=== PATIENT | female | born 1975 | race African-American/Black ===

== ENCOUNTER 2019-01-07 09:43 | Emergency (ER) | payer SELFPAY ==
[~2019-01-07] VITALS: Ht 157.5 cm; Wt 74.8 kg
--- OUTSIDE RECORDS SUMMARY | 2019-01-07 09:45 | XMS REPORT | Summary of Care ---
Author Author [facility] - Health Organization [facility] - Health Address Unknown Phone Unavailable Care Team Providers Care Manager Training Name Role Phone Marisel Moody CNM PCP Reason for Referral * Radiology Services (Routine) Referred By Contact Referred To Contact Status Reason Specialty Diagnoses / Procedures Marisel Moody CNM [address] [place] [address] New Request Diagnostic Diagnoses Radiology Well woman exam with routine gynecological exam Breast cancer screening P rocedures BI SCREENING MAMMOGRAM BILATERAL Reason for Visit * Reason Comments ANNUAL EXAM Encounter Details Care Team Description Date Type Department Marisel Moody CNM [address] [place] [address] Well woman exam with routine gynecological exam (Primary Dx); Breast cancer screening; History of trichomoniasis; Routine screening for STI (sexually transmitted infection); Absence of menstruation; Oral contraceptive pill surveillance; Ringworm of body 10/14/2018 Office Visit [facility] [address] [place] [address] Allergies No Known Allergiesdocumented as of this encounter (statuses as of 10/18/2018) Medications End Date Status Medication Sig Dispensed Refills Start Date Active Norethindrone Take 1 tablet 4 Package 2 Acet-Ethinyl Est (JUNEL by mouth 8 1.08/08, 21,) 1.5-30 daily. mg-mcg per tablet Active Norethindrone Take 1 tablet 2 Package 10 Acet-Ethinyl Est (ADEBAYO by mouth 9 1.530, 21,) 1.5-30 daily. mg-mcg per tabletIndications: Oral contraceptive pill surveillance 10/18/2018 Discontinued Norethindrone Take 1 tablet 2 Package 0 Acet-Ethinyl Est (ADEBAYO by mouth 9 .08/08, 21,) 1.5-30 daily. mg-mcg per tabletIndications: Initiation of OCP (BCP) documented as of this encounter (statuses as of 10/18/2018) Active Problems Problem Noted Date Hx of Trichomonal vulvovaginitis 04/18/2018 Vaginal discharge 04/18/2018 Irregular menstrual cycle 04/18/2018 Surveillance of previously prescribed contraceptive pill 11/05/2017 Screen for STD (sexually transmitted disease) 10/10/2017 documented as of this encounter (statuses as of 10/18/2018) Resolved Problems Problem Noted Date Resolved Date Trichomonal vulvovaginitis 10/17/2017 04/18/2018 Well woman exam 10/10/2017 04/18/2018 Contraception 10/10/2017 04/18/2018 Breast cancer screening 10/10/2017 04/18/2018 Overview: Negative mammogram 10/2017. Dense breasts. Report scanned Family history of diabetes mellitus 10/10/2017 04/18/2018 documented as of this encounter (statuses as of 10/18/2018) Social History Date Tobacco Use Types Packs/Day Years Used Never Smoker Smokeless Tobacco: Never Used Drinks/Week oz/Week Comments Alcohol Use occasional Yes Sex Assigned at Date Recorded Not on file Industry Job Start Date Occupation Not on file Not on file Not on file Travel End Travel History Travel Start No recent travel history available. documented as of this encounter Last Filed Vital Signs Reading Time Taken Comments Vital Sign 122/73 10/14/2018 5:03 PM CDT Blood Pressure 82 10/14/2018 5:03 PM CDT Pulse 36.4 C (97.6 F) 10/14/2018 5:03 PM CDT Temperature 18 10/14/2018 5:03 PM CDT Respiratory Rate - - Oxygen Saturation - - Inhaled Oxygen Concentration 76.2 kg (168 lb) 10/14/2018 5:03 PM CDT Weight 157.5 cm (5' 2") 10/14/2018 5:03 PM CDT Height 30.73 10/14/2018 5:03 PM CDT Body Mass Index documented in this encounter Progress Notes * Marisel Moody, FARA - 10/14/2018 4:45 PM CDT Chief complaint: Chief Complaint Patient presents with ANNUAL EXAM Nathaly Ceballos is a 42 year old female here today for established patien t well woman evaluation and contraceptive managment. She is alto reporting a ra sh on her lower leg x 1 week that is itchy in nature. She has not tried any gonzalo atments. 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 Patient reports she is sexually active. States her partne r does not have an STD. She requests STI testing. The patient is experiencing no pain. The patient's pertinent negatives include no breast complaints, genital itching, genital lesions, genital odor, pelvic pain, vaginal bleeding, vaginal discharge, vaginal injury or vaginal pain. Pertinent negatives include no abdominal pain, back pain, constipation, dyspareunia, fever, flank pain, headaches, light-head edness, nausea, urgency or vomiting. She uses OCPs for contraception. She is con sidering another however she is hesitant due to her age and irregular menstrual cycle. Her menstrual history has been irregular. She has no history o f PID. She has had one surgery. LMP 07/2018; has been on CHCs since Menses: Irregular Mammogram History: she has never had a mammogram Last Pap Smear: date: 10/2017 NIL, trich identified on pap. Histories OB History Para Term AB Living 1 1 1 1 SAB TAB Ectopic Multiple Live Births 1 # Outcome Date GA Lbr Jewel/2nd Weight Sex Delivery Anes PTL Lv 1 Term 08/28/03 38w0d M CS-LTranv EPI MOLLY Past Medical History: Diagnosis Date Family history of diabetes mellitus 10/10/2017 Irregular menstrual cycle 04/18/2018 Menstrual disorder irregular cycles since july Screen for STD (sexually transmitted disease) 10/10/2017 Trichomonal vulvovaginitis 10/17/2017 Family History Problem Relation Age of Onset Diabetes Mother Hypertension Mother Family Status Relation Name Status Mo Alive STROKE Fa MGMo MGFa PGMo PGFa Past Surgical History: Procedure Laterality Date SECTION Social History Socioeconomic History Marital status: Single Spouse name: Not on file Number of children: Not on file Years of education: Not on file Highest education level: Not on file Occupational History Not on file Social Needs Financial resource strain: Not on file Food insecurity: Worry: Not on file Inability: Not on file Transportation needs: Medical: Not on file Non-medical: Not on file Tobacco Use Smoking status: Never Smoker Smokeless tobacco: Never Used Substance and Sexual Activity Alcohol use: Yes Comment: occasional Drug use: No Sexual activity: Yes Partners: Male control/protection: None, Pill, Contraceptive Patch Lifestyle Physical activity: Days per week: Not on file Minutes per session: Not on file Stress: Not on file Relationships Social connections: Talks on phone: Not on file Gets together: Not on file Attends yazidi service: Not on file Active member of club or organization: Not on file Attends meetings of clubs or organizations: Not on file Relationship status: Not on file Intimate partner violence: Fear of current or ex partner: Not on file Emotionally abused: Not on file Physically abused: Not on file Forced sexual activity: Not on file Other Topics Concern Not on file Social History Narrative Denies any form of abuse. Zuly Lopez RN10/14/2018 Social History Substance and Sexual Activity Sexual Activity Yes Partners: Male control/protection: None, Pill, Contraceptive Patch Labs Labs are pending. Radiology No new radiology. Allergies Nathaly has No Known Allergies. Medications Nathaly has a current medication list which includes the following prescription(s) : norethindrone acet-ethinyl est and norethindrone acet-ethinyl est. Review of Systems Constitutional: Negative. Negative for appetite change, fever and unexpected we ight change. HENT: Negative. Negative for congestion, facial swelling, rhinorrhea and sore t hroat. Eyes: Negative. Negative for visual disturbance. Respiratory: Negative. Breasts: Negative. Cardiovascular: Negative. Negative for palpitations and leg swelling. Gastrointestinal: Negative. Negative for abdominal pain, constipation, diarrhea , nausea and vomiting. Genitourinary: Negative. Negative for bladder incontinence, dysuria, flank pain , vaginal bleeding, vaginal discharge, difficulty urinating, genital sores, vagi nal pain and pelvic pain. Musculoskeletal: Negative. Skin: Positive for rash. Neurological: Negative. Negative for syncope, light-headedness, numbness and he adaches. Psychiatric/Behavioral: Negative. Negative for dysphoric mood, self-injury and suicidal ideas. The patient is not nervous/anxious. Endocrine: Endocrine negative BP 122/73 | Pulse 82 | Temp 36.4 C (97.6 F) (Tympanic) | Resp 18 | Ht 5' 2" (1.575 m) | Wt 168 lb (76.2 kg) | BMI 30.73 kg/m Pregravid BMI: Could not be calculated Physical Exam Vitals reviewed. Constitutional: She is oriented to person, place, and time. She appears well-dev eloped, well-nourished and well-groomed. Neck: No tenderness and no mass. Thyromegaly palpated. Cardiovascular: Regular rate and rhythm. No peripheral edema present. Pulmonary/Chest: Breath sounds clear to auscultation. Normal inspiratory effort. Abdominal: Abdomen is soft. No tenderness present. There is no rigidity and no g uarding. Neuro/Psychiatric: She has a normal mood and affect. She is oriented to person, place, and time. Skin: Rash present. Large rash on outer LE. Circular with clear center. Breast: Right breast exhibits no mass and no tenderness. Left breast exhibits no mass and no tenderness. Normal left breast and normal right breast External genitalia: Normal external genitalia appropriate for age. Vagina:Normal vagina. Cervix: No tenderness present. Adnexa: Normal left adnexa and normal right adnexa Anus/perineum: Normal perineum and normal anus. Assessment/Plan Well woman exam with routine gynecological exam (primary encounter diagnosis) Breast cancer screenng Comment: last pap 10/2017 NIL Plan: GLYCOSYLATED HEMOGLOBIN (A1C), THYROID STIMULATING HORMONE; referral to [facility] provided RTC in 1 year for WWE Routine screening for STI (sexually transmitted infection) History of trichomoniasis Comment: patient desires screening Plan: GALV ONLY - VAGINAL PATHOGENS BY DNA PROBE, HIV 1/2 AG-AB WITH REFLEX, GALV ONLY - SYPHILIS IGG/IGM, GC & CHLAMYDIA AMPLIFIED ASSAY Condoms for STI protection PRN Absence of menstruation Comment: patient had period in July 2018; denies perimenopausal sx, 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 * Zuly Lopez I RN - 10/14/2018 4:45 PM CDT Pt here for WWE check-up today. LMP: 08/01/2018 (no return of menses since delivery). previous control: Pills Desired method pills. Last intercourse 10/10/2018 Last pap: 10/2017 negative with + trichomonas txd.2018 C/O: menstrual periods irregular, rash in legs since a week ago Verbal consent obtained for HIV testing if needed. SBE, STD, and BC booklet reviewed and provided. She is to ask for reference material at check out. She voiced understanding. documented in this encounter Plan of Treatment Care Team Description Date Type Specialty Marisel Moody CNM [address] [facility] [address] [place] [address] [phone] 01/14/2019 Office Visit [facility] Order Schedule Name Type Priority Associated Diagnoses Expected: 10/18/2018, Expires: 10/19/2019 BI SCREENING MAMMOGRAM IMAGING Routine Well woman exam with BILATERAL routine gynecological exam Breast cancer screening Health Maintenance Due Date Last Done Comments DTaP,Tdap,and Td Vaccines 11/16/1995 (1 - Tdap) MAMMOGRAM 2016 INFLUENZA VACCINE 11/10/2018 PAP SMEAR 10/10/2020 10/10/2017 PNEUMOCOCCAL 0-64 YEARS Aged Out No longer eligible based COMBINED SERIES on patient's age to complete this topic documented as of this encounter Procedures Comments Procedure Name Priority Date/Time Associated Diagnosis GALV ONLY - SYPHILIS Routine 10/14/2018 Routine screening for STI IGG/IGM 5:55 PM CDT (sexually transmitted infection) HIV 1/2 AG-AB WITH REFLEX Routine 10/14/2018 Routine screening for STI 5:55 PM CDT (sexually transmitted infection) GALV ONLY - VAGINAL Routine 10/14/2018 History of trichomoniasis PATHOGENS BY DNA PROBE 5:55 PM CDT Routine screening for STI (sexually transmitted infection) GC & CHLAMYDIA AMPLIFIED Routine 10/14/2018 Routine screening for STI ASSAY 5:55 PM CDT (sexually transmitted infection) GLYCOSYLATED HEMOGLOBIN Routine 10/14/2018 Well woman exam with (A1C) 5:55 PM CDT routine gynecological exam THYROID STIMULATING Routine 10/14/2018 Well woman exam with HORMONE 5:55 PM CDT routine gynecological exam POCT TEST Routine 10/14/2018 History of trichomoniasis documented in this encounter Results * THYROID STIMULATING HORMONE (10/14/2018 5:55 PM CDT) TSH 0.96Comment: Biotin has been 0.45 - 4.70 mIU/L [facility] reported to cause a negative SERVICES bias, interpret results relative to patient's use of biotin. Specimen Blood - ARM, LEFT Performing Organization Address [facility] Phone Number [facility] SERVICES CLIA: [id number], [address] [place] [address] [facility] * GLYCOSYLATED HEMOGLOBIN (A1C) (10/14/2018 5:55 PM CDT) HGB A1C 5.4 4.0 - 6.0 % [facility] SERVICES Specimen Blood - ARM, LEFT Performing Organization Address [facility] Phone Number [facility] CLIA: [id number], [address] [place], [place] [address] [facility] * GC & CHLAMYDIA AMPLIFIED ASSAY (10/14/2018 5:55 PM CDT) C. trachomatis NEGATIVE Negative [facility] Nucleic Acid SERVICES N. gonorrhoeae NEGATIVE Negative [facility] Nucleic Acid SERVICES Specimen Urine - URINE, CLEAN CATCH Performing Organization Address [facility]ode Phone Number [facility] CLIA: [id number], [address] [place], [place] [address] [facility] * GALV ONLY - SYPHILIS IGG/IGM (10/14/2018 5:55 PM CDT) Syphilis Non-reactive Non-reactive [facility] IgG/IgM SERVICES Specimen Blood - ARM, LEFT Narrative Performed At Non-reactive - No serologic evidence of T. pallidum infection. Cannot exclude [facility] incubating or early syphilis. Submit a second specimen in 2-4 weeks if syphilis SERVICES is clinically suspected. Equivocal - Further testing to follow. Reactive - Further testing to follow. Performing Organization Address City/[facility] Phone Number [facility] SERVICES CLIA: [id number], [address] [place] [address] [address] [facility] * HIV 1/2 AG-AB WITH REFLEX (10/14/2018 5:55 PM CDT) HIV 1/2 Ag-Ab Negative Negative [facility] with Reflex SERVICES HIV 0.06 [facility] Semi-quantitati SERVICES ve Specimen Blood - ARM, LEFT Narrative Performed At Non-reactive for HIV-1 antigen and HIV-1/HIV-2 antibodies.No laboratory [facility] evidence of HIV infection.Repeat in 2-4 weeks if acute HIV infection is SERVICES suspected. Performing Organization Address City/[facility] Phone Number [facility] CLIA: [id number], [address] [place] [address] [address] [facility] * GALV ONLY - VAGINAL PATHOGENS BY DNA PROBE (10/14/2018 5:55 PM CDT) Pathologist [facility] Trichomonas Negative Negative [facility] vaginalis SERVICES Gardnerella Negative Negative [facility] vaginalis SERVICES Libby species Negative Negative [facility] SERVICES Specimen Fluid - VAGINA Performing Organization Address City/[facility] Phone Number [facility] CLIA: [id number], [address] [place] [address] [phone] [facility] * POCT TEST (10/14/2018) POCT PREG Negative On board Yes controls acceptable with C Line POCT PREG LOT # POCT PREG TEST DATE Specimen Urine - URINE, CLEAN CATCH documented in this encounter Visit Diagnoses Diagnosis Well woman exam with routine gynecological exam - Primary Routine gynecological examination Breast cancer screening Breast screening, unspecified History of trichomoniasis Personal history of other infectious and parasitic disease Routine screening for STI (sexually transmitted infection) Screening examination for venereal disease Absence of menstruation Oral contraceptive pill surveillance Surveillance of previously prescribed contraceptive pill Ringworm of body Dermatophytosis of the body documented in this encounter Insurance Type Payer Benefit Subscriber ID Effective Phone Address Plan / Dates Group Medicaid [facility] [place] [facility] xxxxxxxxx 2018-P [phone] [address] [place] [address] documented as of this encounter
--- OUTSIDE RECORDS SUMMARY | 2019-01-07 09:45 | XMS REPORT | Summary of Care ---
Author Author [facility] - Health Organization [facility] - Health Address Unknown Phone Unavailable Care Team Providers Care Roof Foreman Name Role Phone Marisel Moody CNM PCP Reason for Referral * Radiology Services (Routine) Referred By Contact Referred To Contact Status Reason Specialty Diagnoses / Procedures Marisel Moody CNM [address] [place] [address] New Request Diagnostic Diagnoses Radiology Well woman exam with routine gynecological exam Breast cancer screening P rocedures BI SCREENING MAMMOGRAM BILATERAL Reason for Visit * Reason Comments ANNUAL EXAM Encounter Details Care Team Description Date Type Department Marisel Moody CNM [address] [place] [address] Well woman exam with routine gynecological exam (Primary Dx); Breast cancer screening; History of trichomoniasis; Routine screening for STI (sexually transmitted infection); Absence of menstruation; Oral contraceptive pill surveillance; Ringworm of body 10/14/2018 Office Visit [facility] [address] [place] [address] Allergies No Known Allergiesdocumented as [...] She has not tried any gonzalo atments. 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 Specimen Blood - ARM, LEFT Performing Organization Address [email or web address] Phone Number [facility] CLIA: [id number], [address] [place] [address] [facility] * GLYCOSYLATED HEMOGLOBIN (A1C) (10/14/2018 5:55 PM CDT) HGB A1C 5.4 4.0 - 6.0 % [facility] SERVICES Specimen Blood - ARM, LEFT Performing Organization Address [facility] [email or web address] Phone Number [facility] CLIA: [id number], [address] [place], [place] [address] [facility] * GC & CHLAMYDIA AMPLIFIED ASSAY (10/14/2018 5:55 PM CDT) C. trachomatis NEGATIVE Negative [facility] Nucleic Acid SERVICES N. gonorrhoeae NEGATIVE Negative [facility] Nucleic Acid SERVICES Specimen Urine - URINE, CLEAN CATCH Performing Organization Address [facility] [email or web address] Phone Number [facility] CLIA: [id number], [address] [place], [place] [address] [facility] * GALV ONLY - SYPHILIS IGG/IGM (10/14/2018 5:55 PM CDT) Syphilis Non-reactive Non-reactive [facility] IgG/IgM SERVICES Specimen Blood - ARM, LEFT Narrative Performed At Non-reactive - No serologic evidence of T. pallidum infection. Cannot exclude [facility] incubating or early syphilis. Submit a second specimen in 2-4 weeks if syphilis SERVICES is clinically suspected. Equivocal - Further testing to follow. Reactive - Further testing to follow. Performing Organization Address City/[facility] [email or web address] Phone Number [facility] CLIA: [id number], [address] [place] [phone] [facility] * HIV 1/2 AG-AB WITH REFLEX (10/14/2018 5:55 PM CDT) HIV 1/2 Ag-Ab Negative Negative [facility] with Reflex SERVICES HIV 0.06 [facility] Semi-quantitati SERVICES ve Specimen Blood - ARM, LEFT Narrative Performed At Non-reactive for HIV-1 antigen and HIV-1/HIV-2 antibodies.No laboratory [facility] evidence of HIV infection.Repeat in 2-4 weeks if acute HIV infection is SERVICES suspected. Performing Organization Address City/[facility] [[email or web address] Phone Number [facility] CLIA: [id number], [address] [place] [address] [facility] * GALV ONLY - VAGINAL PATHOGENS BY DNA PROBE (10/14/2018 5:55 PM CDT) Pathologist [facility] Trichomonas Negative Negative [facility] vaginalis SERVICES Gardnerella Negative Negative [facility] vaginalis SERVICES Libby species Negative Negative [facility] Specimen Fluid - VAGINA Performing Organization Address City/[facility] [email or web address] Phone Number [facility] CLIA: [id number], [address] [place] [address] [facility] * POCT TEST (10/14/2018) POCT [...] Address Plan / Dates Group Medicaid [facility] [place] [facility] xxxxxxxxx 2018-P [phone] [id number] [place] [address] documented as of this encounter
--- OUTSIDE RECORDS SUMMARY | 2019-01-07 09:45 | XMS REPORT | Summary of Care ---
Author Author [facility] - [facility] Organization [facility] - Health Address Unknown Phone Unavailable Care Team Providers Care State Pilot Name Role Phone VinicioClaribel FARA PCP Encounter Details Care Team Description Date Type Department Doctor Unassigned, [place] [address] [place] [address] 10/14/2018 Orders Only [facility] [address] [place] [address] Allergies No Known Allergiesdocumented as of this encounter (statuses as of 10/14/2018) Medications End Date Status Medication Sig Dispensed Refills Start Date Active Norethindrone Take 1 tablet 4 Package 2 Acet-Ethinyl Est (JUNEL by mouth 8 1.08/08, 21,) 1.5-30 daily. mg-mcg per tablet Active Norethindrone Take 1 tablet 2 Package 0 Acet-Ethinyl Est (ADEBAYO by mouth 9 1.30, 21,) 1.5-30 daily. mg-mcg per tabletIndications: Initiation of OCP (BCP) documented as of this encounter (statuses as of 10/14/2018) Active Problems Problem Noted Date Hx of Trichomonal vulvovaginitis 04/18/2018 Vaginal discharge 04/18/2018 Irregular menstrual cycle 04/18/2018 Surveillance of previously prescribed contraceptive pill 11/05/2017 Screen for STD (sexually transmitted disease) 10/10/2017 documented as of this encounter (statuses as of 10/14/2018) Resolved Problems Problem Noted Date Resolved Date Trichomonal vulvovaginitis 10/17/2017 04/18/2018 Well woman exam 10/10/2017 04/18/2018 Contraception 10/10/2017 04/18/2018 Breast cancer screening 10/10/2017 04/18/2018 Overview: Negative mammogram 10/2017. Dense breasts. Report scanned Family history of diabetes mellitus 10/10/2017 04/18/2018 documented as of this encounter (statuses as of 10/14/2018) Social History Date Tobacco Use Types Packs/Day [...] of this encounter Last Filed Vital Signs Not on filedocumented in this encounter Plan of Treatment Health Maintenance Due Date Last Done Comments DTaP,Tdap,and Td Vaccines 11/16/1995 (1 - Tdap) MAMMOGRAM 2016 INFLUENZA VACCINE 11/10/2018 PAP SMEAR 10/10/2020 10/10/2017 PNEUMOCOCCAL 0-64 YEARS Aged Out No longer eligible based COMBINED SERIES on patient's age to complete this topic documented as of this encounter Procedures Comments Procedure Name Priority Date/Time Associated Diagnosis ASSIGNMENT OF BENEFITS Routine 10/14/2018 4:47 PM CDT documented in this encounter Results Not on filedocumented in this encounter Insurance Type Payer Benefit Subscriber ID Effective Phone Address Plan / Dates Group Medicaid [employer] [place] [employer] [id number] xxxxxxxxx 2017-P [phone] [id number] [place] [address] documented as of this encounter
--- OUTSIDE RECORDS SUMMARY | 2019-01-07 09:45 | XMS REPORT ---
Author Author [facility] Address Unknown Phone Unavailable Care Team Providers Care Washcloth Folder Name Role Phone Unavailable Unavailable Payers Payer Name Policy Type Policy Number Effective Date Expiration Date Problems This patient has no known problems. Allergies, Adverse Reactions, Alerts Allergy Name Allergy Type Status Severity Reaction(s) Onset Date Inactive Date Treating Clinician Comments No Known Allergies DA Active U 2016-05-01 00:00:00 Medications This patient has no known medications.
--- NOTE | 2019-01-07 10:03 | NUR ---
PRIMARY NURSE NOTIFIED OF PT.
[2019-01-07 10:36] LABS: BASOPHILS % 0.4 % (0.0-1.0); EOSINOPHILS # (AUTO) 0.1 (0.0-0.4); EOSINOPHILS % 1.8 % (0.0-6.0); HEMATOCRIT 37.9 % (34.2-44.1); HEMOGLOBIN 12.4 g/dL (12.0-16.0); LYMPHOCYTES # (AUTO) 1.6 (1.0-3.2); LYMPHOCYTES % 19.8 % (18.0-39.1); MEAN CORPUSCULAR HEMOGLOBIN 28.9 pg (28-32); MEAN CORPUSCULAR HGB CONC 32.7 g/dL (31-35); MEAN CORPUSCULAR VOLUME 88.3 fL (81-99); MONOCYTES # (AUTO) 0.4 (0.2-0.8); NEUTROPHILS # (AUTO) 5.7 (2.1-6.9); NEUTROPHILS % 72.6 % (38.7-80.0); PLATELET COUNT 446 x10e3/uL (140-360); RED BLOOD COUNT 4.29 x10e6/uL (3.6-5.1); RED CELL DISTRIBUTION WIDTH 13.3 % (11.7-14.4)
[2019-01-07 10:55] LABS: INR 1.1; PROTHROMBIN TIME 14.7 seconds (11.9-14.5)
[2019-01-07 10:56] LABS: PARTIAL THROMBOPLASTIN TIME 28.4 seconds (23.8-35.5)
--- NOTE | 2019-01-07 11:02 | Diagnostic Imaging Report ---
EXAMINATION: CHEST SINGLE (PORTABLE) INDICATION: Chest pain COMPARISON: None FINDINGS: LINES/TUBES:EKG leads overlie the chest. LUNGS:The lungs are well-inflated. No focal consolidation or pulmonary edema. PLEURA:No pleural effusion or pneumothorax. MEDIASTINUM:The cardiomediastinal silhouette appears normal in size and shape. BONES/SOFT TISSUES:No acute osseous injury. ABDOMEN:No free air under the diaphragm. IMPRESSION: No focal pneumonia or pulmonary edema. Signed by: Manny Ramirez MD on 01/07/2019 10:59 AM
[2019-01-07 11:06] LABS: ALANINE AMINOTRANSFERASE 10 IU/L (0-55); ALBUMIN 3.1 g/dL (3.5-5.0); ALBUMIN/GLOBULIN RATIO 0.8 (0.8-2.0); ALKALINE PHOSPHATASE 34 IU/L (40-150); ANION GAP 11.8 mmol/L (8-16); BLOOD UREA NITROGEN 7 mg/dL (7-26); BUN/CREATININE RATIO 9 (6-25); CALCIUM 8.7 mg/dL (8.4-10.2); CARBON DIOXIDE 24 mmol/L (22-29); CHLORIDE 102 mmol/L (98-107); CREATINE KINASE 64 IU/L (29-168); CREATININE, SERUM 0.76 mg/dL (0.57-1.11); EST GLOMERULAR FILTRATION RATE > 60 ML/MIN (60-); GLUCOSE 118 mg/dL (74-118); POTASSIUM 3.8 mmol/L (3.5-5.1); SODIUM 134 mmol/L (136-145)
[2019-01-07] MEDS ORDERED: KETOROLAC TROMETHAMINE 30 MG/ML VIAL IV STA (11:34)
[2019-01-07 12:11] VITALS: BP 135/90
[2019-01-07 12:24] LABS: CREATINE KINASE MB < 1.00 ng/mL (0-4.3)
== END 2019-01-07 12:18 | disposition home or self-care (01) ==
LOC: ER 09:43
DX: R07.89 Other chest pain (principal)
CPT/HCPCS: 36415; 71045; 80053; 82550; 82553; 83880; 84484; 85025; 85610; 85730; 93005; 99284; J1885